=== PATIENT | female | born 1970 | race Caucasian/White ===

== ENCOUNTER → 2017-03-30 17:17 | Outpatient (CLI) | payer OTHER | END | disposition home or self-care (01) | LOC: D.MAMMO 14:30 | DX: Z12.31 Encounter for screening mammogram for malignant neoplasm of breast (principal) ==

== ENCOUNTER → 2017-06-07 14:17 | Outpatient (CLI) | payer OTHER | END | disposition home or self-care (01) | LOC: D.MAMMO 05-17 10:30 | DX: N63 Unspecified lump in breast (principal) ==

== ENCOUNTER → 2017-06-16 13:23 | Outpatient (CLI) | payer OTHER | END | disposition home or self-care (01) | LOC: D.US 13:23 | DX: R92.8 Other abnormal and inconclusive findings on diagnostic imaging of breast (principal) ==

== ENCOUNTER → 2018-06-29 16:19 | Outpatient (CLI) | payer OTHER | END | disposition home or self-care (01) | LOC: D.MRI 16:19 | DX: M25.512 Pain in left shoulder (principal) ==

== ENCOUNTER → 2018-08-17 16:33 | Outpatient (CLI) | payer OTHER ==
[~2018-08-17 16:33] MED LIST: LEXAPRO10 MG PO; VYVANSE50 MG PO
== END | disposition home or self-care (01) ==
LOC: D.MAMMO 13:15
DX: Z12.31 Encounter for screening mammogram for malignant neoplasm of breast (principal)

== ENCOUNTER 2018-08-24 08:00 | Outpatient (CLI) | payer OTHER ==
[2018-08-24] MEDS ORDERED: VYVANSE50 MG PO (09:33)
[2018-08-24] MEDS ORDERED: LEXAPRO10 MG PO (09:34)
[2018-08-30 06:09] VITALS: BMI 20.1
== END 2018-08-24 08:01 | disposition home or self-care (01) ==
LOC: D.OPS 08:00
DX: N93.9 Abnormal uterine and vaginal bleeding, unspecified (principal); Z01.810 Encounter for preprocedural cardiovascular examination; Z01.811 Encounter for preprocedural respiratory examination; Z01.812 Encounter for preprocedural laboratory examination; Z53.9 Procedure and treatment not carried out, unspecified reason

== ENCOUNTER → 2018-08-28 16:15 | Outpatient (CLI) | payer OTHER ==
[~2018-08-28 16:15] MED LIST changes: +IBUPROFEN800 MG PO
== END | disposition home or self-care (01) ==
LOC: D.MAMMO 11:00
DX: R92.8 Other abnormal and inconclusive findings on diagnostic imaging of breast (principal)

== ENCOUNTER 2018-08-30 05:52 | Day surgery (SDC) | payer OTHER ==
[2018-08-24 10:09] LABS: BASOPHILS 0.3 % (0-2); EOSINOPHILS 1.9 % (0-7); HEMATOCRIT 36.9 % (36.0-48.0); HEMOGLOBIN 12.6 g/dL (12-16); IMMATURE GRANULOCYTES 0.3 % (0-5); LYMPHOCYTES 36.2 % (15-50); MCHC 34.1 g/dL (31.0-37.0); MCV 90.7 fL (80.0-100.0); MONOCYTES 13.8 % (2-11); NEUTROPHILS 47.5 % (40-80); PLATELET COUNT 205 10x3/uL (130-400); RBC 4.07 10x6/uL (4.00-5.40); RDW 11.9 % (11.5-14.5); WBC 3.6 10x3/uL (4.8-10.8)
[2018-08-24 10:30] LABS: CALC OSMOLALITY 273 mosm/kg (275-300); CARBON DIOXIDE 28.3 mmol/L (21.0-32.0); CHLORIDE - SERUM 102 mmol/L (98-107); CREATININE - SERUM 0.8 mg/dL (0.6-1.3); GLUCOSE 103 mg/dL (74-106); POTASSIUM - SERUM 3.9 mmol/L (3.5-5.1); SODIUM 136 mmol/L (136-145); UREA NITROGEN 19 mg/dL (7-18); eGFR NON AFRICAN AMERICAN 81 mL/min (90-120)
[~2018-08-30] VITALS: Ht 157.5 cm; Wt 49.9 kg
[~2018-08-30 05:52] MED LIST changes: -IBUPROFEN800 MG PO
[2018-08-30 06:09] VITALS: Ht 157.5 cm; Wt 49.9 kg
[2018-08-30 06:42] LABS: HCG URINE NEGATIVE (NEGATIVE)
[2018-08-30] MEDS ORDERED: IBUPROFEN800 MG PO (11:10)
== END 2018-08-30 11:25 | disposition home or self-care (01) ==
LOC: D.OPS 05:52 → D.PAN 07:30 → D.OPS 09:00
PROVIDERS: Anesthesiology; Obstetrics & Gynecology
DX: N93.8 Other specified abnormal uterine and vaginal bleeding (principal); Z01.812 Encounter for preprocedural laboratory examination

== ENCOUNTER 2019-10-02 08:00 | Outpatient (CLI) | payer BC ==
[2018-08-30 06:09] VITALS: BMI 20.1
[~2019-10-02 08:00] MED LIST changes: +IBUPROFEN800 MG PO
== END 2019-10-02 23:59 | disposition home or self-care (01) ==
LOC: D.MAMMO 08:00
PROVIDERS: ATTEND Obstetrics & Gynecology
DX: Z12.31 Encounter for screening mammogram for malignant neoplasm of breast (principal)